=== PATIENT | female | born 1970 | race Caucasian/White ===

== ENCOUNTER → 2016-02-23 | Outpatient (CLI) | payer OTHER ==
--- NOTE | 2016-02-23 15:46 | DX ---
Left shoulder series 3 views 1150 hours. History: Left shoulder pain for 6 months without trauma. Findings: The glenohumeral joint is normal in appearance. There is mild widening at the AC joint with out subluxation. No osteophytes are seen. There is a small bone island involving the glenoid portion of the scapula. Small calcified granuloma is present inferior aspect left upper lobe. The visualized left ribs are normal in appearance. Impression: 1. Mild widening of the left AC joint without subluxation. This could represent grade 2 injury althou gh by history, the patient has not had associated trauma. Clinical correlation recommended. 2. No significant abnormality otherwise seen left shoulder.
== END ==
LOC: FIMAGING 11:49
PROVIDERS: ATTEND Family Medicine
DX: M25.312 Other instability, left shoulder (principal); M25.512 Pain in left shoulder

== ENCOUNTER → 2016-05-31 | Outpatient (CLI) | payer OTHER | LOC: FIMAGING 08:29 | DX: Z12.31 Encounter for screening mammogram for malignant neoplasm of breast (principal); Z80.3 Family history of malignant neoplasm of breast | CPT/HCPCS: G0202 ==

== ENCOUNTER → 2017-06-06 | Outpatient (CLI) | payer OTHER | LOC: FIMAGING 10:25 | PROVIDERS: ATTEND Obstetrics & Gynecology | DX: Z12.31 Encounter for screening mammogram for malignant neoplasm of breast (principal); Z80.3 Family history of malignant neoplasm of breast ==

== ENCOUNTER → 2018-06-09 | Outpatient (CLI) | payer OTHER | LOC: FIMAGING 08:45 | PROVIDERS: ATTEND Obstetrics & Gynecology | DX: Z12.31 Encounter for screening mammogram for malignant neoplasm of breast (principal) ==